=== PATIENT | male | born 1975 | race African-American/Black ===

== ENCOUNTER 2018-04-08 00:15 | Emergency (ER) | payer OTHER ==
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
[2018-04-08 01:01] LABS: BASO % 0.5 % (0-2.0); EOS % 2.9 % (0-4.5); HEMATOCRIT 45.5 % (35.4-49); HEMOGLOBIN 16.5 GM/dL (11.7-16.9); LYMPH % 22.7 % (8-40); MCH 30.8 pg (25.7-33.7); MCHC 36.2 g/dl (32.0-35.9); MEAN CELL VOLUME 85.1 fl (80-96); MEAN PLT VOLUME 10.7 fl (7.5-11.1); MONO % 4.9 % (3.8-10.2); PLATELET COUNT 170 K/MM3 (134-434); RBC 5.34 M/mm3 (4.00-5.60); RDW 12.6 % (11.9-15.9); WHITE BLOOD COUNT 8.5 K/mm3 (4.0-10.0)
[2018-04-08 01:30] LABS: ALK PHOS 126 U/L (45-117); ANION GAP 7 MMOL/L (8-16); BILIRUBIN,TOTAL 0.4 mg/dL (0.2-1); BLOOD UREA NITROGEN 22 mg/dL (7-18); CALCIUM 8.4 mg/dL (8.5-10.1); CHLORIDE 105 mmol/L (98-107); CO2 27 mmol/L (21-32); CREATININE 1.4 mg/dL (0.55-1.3); GLUCOSE,RANDOM 106 mg/dL (74-106); POTASSIUM 4.1 mmol/L (3.5-5.1); SGOT/AST 21 U/L (15-37); SGPT/ALT 34 U/L (13-61); SODIUM 140 mmol/L (136-145)
[2018-04-08 01:47] VITALS: BP 133/86; PULSE 106; TEMP 97.8; BMI 29.9
--- NOTE | 2018-04-08 16:51 | EKG ---
Test Reason : Blood Pressure : / mmHG Vent. Rate : 095 BPM Atrial Rate : 091 BPM P-R Int : 180 ms QRS Dur : 084 ms QT Int : 338 ms P-R-T Axes : 043 017 006 degrees QTc Int : 424 ms UNDETERMINED RHYTHM OTHERWISE NORMAL ECG WHEN COMPARED WITH ECG OF 20-NOV-2017 14:19, CURRENT UNDETERMINED RHYTHM PRECLUDES RHYTHM COMPARISON, NEEDS REVIEW T WAVE INVERSION NOW EVIDENT IN INFERIOR LEADS Confirmed by IZA DELUNA, MARTIN ([id number]) on 04/08/2018 4:50:52 PM Referred By: Confirmed By:MARTIN COUCH MD
== END 2018-04-08 01:56 | disposition home or self-care (01) ==
LOC: JER 00:15
DX: R42 Dizziness and giddiness (principal); X02.8XXA Other exposure to controlled fire in building or structure, initial encounter; Y93.89 Activity, other specified; Y92.89 Other specified places as the place of occurrence of the external cause; Y99.0 Civilian activity done for income or pay
CPT/HCPCS: 36415; 71045-TC-FY; 80053; 82550; 84484; 85025; 93005; 93010; 99281-25

== ENCOUNTER 2020-10-18 14:45 | Emergency (ER) | payer OTHER, BC ==
[2020-10-18 14:51] VITALS: TEMP 98.2; BMI 29.2
[2020-10-18] MEDS ORDERED: predniSONE 20 MG TABLET (UD) PO ONE (15:06)
[2020-10-18] MEDS ORDERED: LORATADINE 10 MG TABLET PO ONE (15:08)
[2020-10-18] MEDS ORDERED: FAMOTIDINE 20 MG TABLET PO ONE (15:08)
[2020-10-18] MEDS ORDERED: FAMOTIDINE 20 MG TABLET ONE (15:18)
[2020-10-18] MEDS ORDERED: predniSONE 20 MG TABLET (UD) ONE (15:18)
[2020-10-18] MEDS ORDERED: LORATADINE 10 MG TABLET ONE (15:19)
[2020-10-18] MEDS ORDERED: DIPHTH,PERTUSS(ACELL),TET 0.5 ML DISP.SYRIN IM ONE ×2 (15:30→15:48)
[2020-10-18 16:40] VITALS: BP 128/98; PULSE 60
== END 2020-10-18 16:40 | disposition home or self-care (01) ==
LOC: JER 14:45
PROC: 3E0234Z Introduction of Serum, Toxoid and Vaccine into Muscle, Percutaneous Approach (ICD-10-PCS; principal; 2020-10-18)
DX: T63.441A Toxic effect of venom of bees, accidental (unintentional), initial encounter (principal)
CPT/HCPCS: 90715; 99284-25